=== PATIENT | female | born 1965 | race African-American/Black ===

== ENCOUNTER 2017-08-13 10:54 | Observation (INO) | payer OTHER ==
[~2017-08-13] VITALS: Ht 165.1 cm; Wt 117.9 kg
[2017-08-13] MEDS ORDERED: SODIUM CHLORIDE 0.9% 500 ML IVB ONE (11:15)
[2017-08-13 11:36] LABS: Basophils # (auto) 0 uL; Basophils % (auto) 0.9 % (0.0-2.0); Eosinophils # (auto) 0.2 uL; Eosinophils % (auto) 3.8 % (0.0-7.0); Hematocrit 39.2 % (36.0-46.0); Hemoglobin 13.6 g/dL (12.2-16.2); Lymphocytes # (auto) 1.9 uL; Lymphocytes % (auto) 40.3 % (10.0-50.0); Mean Corpuscular Hemoglobin 30.6 pg (28.0-32.0); Mean Corpuscular Hgb Conc. 34.6 g/dL (32.0-36.0); Mean Corpuscular Volume 88.3 fL (80.0-100.0); Mean Platelet Volume 8.9 fL (6.9-10.8); Monocytes # (auto) 0.5 uL; Monocytes % (auto) 10.5 % (0.0-12.0); Neutrophils # (auto) 2.1 uL; Neutrophils % (auto) 44.5 % (37.0-80.0); Nucleated Red Blood Cells % 0.1 %; Platelet Count (auto) 222 10^3/uL (140-450); Red Cell Distribution Width 14.7 % (11.8-14.3); White Blood Cell 4.7 10^3/uL (4.4-10.8)
[2017-08-13 11:58] LABS: INR 0.97 (0.9-1.15); Partial Thromboplastin Time 25.9 sec (22.64-33.71); Prothrombin Time 10.6 sec (9.37-12.3)
[2017-08-13 12:01] LABS: Albumin 3.5 g/dL (3.4-5.0); Alkaline Phosphatase 85 U/L (45-117); Anion Gap 3 (5-15); Aspartate Aminotransferase 34 U/L (15-37); Bilirubin, Total 0.5 mg/dL (0.2-1.0); Blood Urea Nitrogen 15 mg/dL (7-18); Calcium 8.5 mg/dL (8.5-10.1); Carbon Dioxide 32 mmol/L (21-32); Chloride 101 mmol/L (98-107); GFR African American 52 mL/min; GFR Non-African American 43 mL/min; Glucose 93 mg/dL (74-106); Magnesium 2.7 mg/dL (1.6-2.6); Sodium 136 mmol/L (136-145); Total Protein 8.4 g/dL (6.4-8.2)
[2017-08-13 12:05] LABS: Potassium 4.8 mmol/L (3.5-5.1)
[2017-08-13 13:08] LABS: B-Type Natriuretic Peptide 0.06 pg/mL (0-100)
[2017-08-13 13:17] LABS: Temperature: 21.5 C (20.0-25.0)
[2017-08-13 14:50] LABS: Urine Bilirubin Negative (Negative); Urine Blood Negative /uL (Negative); Urine Color Yellow (Yellow); Urine Glucose Normal (Normal); Urine Ketone Negative (Negative); Urine Mucus FEW (None Seen); Urine Nitrite POSITIVE (Negative); Urine RBC 2 /hpf (0 - 4); Urine Squamous Epithelial Cell FEW /hpf (<5); Urine Urobilinogen Normal (Negative); Urine pH 6.5 (5.0-8.0)
[2017-08-13] MEDS ORDERED: cefTRIAXone 1GM/50ML D5W 50 ML IV ONE (15:45)
[2017-08-13 16:45] VITALS: BP 127/78
== END 2017-08-13 16:46 | disposition home or self-care (01) | DRG 203 ==
LOC: ER 10:54 → OVERFLOW 11:16 → ER 16:46
PROVIDERS: ADMIT Family Medicine; ATTEND Family Medicine
DX: R07.89 Other chest pain (principal); I10 Essential (primary) hypertension; N39.0 Urinary tract infection, site not specified; H81.10 Benign paroxysmal vertigo, unspecified ear
CPT/HCPCS: 36415; 70450; 71010; 80053; 81001; 83735; 83880; 84484; 85025; 85379; 85610; 85730; 93005; 96361; 96365; 99285; G0378; J0696; J7040

== ENCOUNTER 2022-02-16 05:45 | Emergency (ER) | payer MEDICAID, OTHER ==
[~2022-02-16] VITALS: Ht 162.6 cm; Wt 120.2 kg
[2022-02-16 06:18] LABS: Basophils # (auto) 0 10 ^3/uL (0-0.2); Basophils % (auto) 0.9 % (0.0-2.0); Eosinophils # (auto) 0.2 10 ^3/uL (0-0.8); Hematocrit 40.3 % (36.0-46.0); Hemoglobin 14.2 g/dL (12.2-16.2); Lymphocytes # (auto) 2.1 10 ^3/uL (0.4-5.4); Lymphocytes % (auto) 46.7 % (10.0-50.0); Mean Corpuscular Hemoglobin 31.4 pg (28.0-32.0); Mean Corpuscular Hgb Conc. 35.2 g/dL (32.0-36.0); Mean Corpuscular Volume 89.1 fL (80.0-100.0); Monocytes # (auto) 0.3 10 ^3/uL (0-1.3); Monocytes % (auto) 7.7 % (0.0-12.0); Neutrophils # (auto) 1.8 10 ^3/uL (1.6-8.6); Neutrophils % (auto) 39.7 % (37.0-80.0); Nucleated Red Blood Cells % 0.1 %; Red Blood Cells 4.52 10^6/uL (4.0-5.20); Red Cell Distribution Width 13.3 % (11.8-14.3); White Blood Cell 4.5 10^3/uL (4.4-10.8)
[2022-02-16 06:32] LABS: Albumin 3.7 g/dL (3.4-5.0); BUN/Creatinine Ratio 13.8; Calcium 9.4 mg/dL (8.5-10.1); Potassium 3.5 mmol/L (3.5-5.1)
[2022-02-16 06:35] LABS: Bilirubin, Total 0.4 mg/dL (0.2-1.0); Total Protein 7.5 g/dL (6.4-8.2)
[2022-02-16 08:41] LABS: Urine Bacteria MANY /hpf (None Seen); Urine Blood Negative /uL (Negative); Urine Specific Gravity 1.015 (1.001-1.035); Urine WBC 42 /hpf (0 - 5)
[2022-02-16] MEDS ORDERED: cefTRIAXone 1GM/50ML D5W 50 ML IV ONE (10:45)
[2022-02-16 12:11] VITALS: BP 119/77
== END 2022-02-16 13:28 | disposition home or self-care (01) ==
LOC: ER 05:45
DX: K80.20 Calculus of gallbladder without cholecystitis without obstruction (principal); N39.0 Urinary tract infection, site not specified; K80.50 Calculus of bile duct without cholangitis or cholecystitis without obstruction; E66.01 Morbid (severe) obesity due to excess calories; I10 Essential (primary) hypertension; Z68.41 Body mass index [BMI] 40.0-44.9, adult; Z88.6 Allergy status to analgesic agent
CPT/HCPCS: 36415; 76705; 80053; 81001; 83690; 84484; 85025; 93005; 96365; 99285; J0696

== ENCOUNTER 2023-04-12 10:56 | Emergency (ER) | payer SELFPAY ==
[~2023-04-12] VITALS: Ht 165.1 cm; Wt 122.0 kg
[2023-04-12 11:26] LABS: Basophils # (auto) 0 10 ^3/uL (0-0.2); Basophils % (auto) 1.1 % (0.0-2.0); Eosinophils # (auto) 0.2 10 ^3/uL (0-0.8); Hematocrit 37.7 % (36.0-46.0); Lymphocytes # (auto) 1.9 10 ^3/uL (0.4-5.4); Lymphocytes % (auto) 46.2 % (10.0-50.0); Mean Corpuscular Hemoglobin 30.6 pg (28.0-32.0); Mean Corpuscular Hgb Conc. 34.4 g/dL (32.0-36.0); Mean Corpuscular Volume 88.8 fL (80.0-100.0); Monocytes # (auto) 0.4 10 ^3/uL (0-1.3); Monocytes % (auto) 9.5 % (0.0-12.0); Neutrophils # (auto) 1.6 10 ^3/uL (1.6-8.6); Neutrophils % (auto) 38.2 % (37.0-80.0); Nucleated Red Blood Cells % 0.2 %; Red Blood Cells 4.25 10^6/uL (4.0-5.20); Red Cell Distribution Width 14.2 % (11.8-14.3); White Blood Cell 4.2 10^3/uL (4.4-10.8)
[2023-04-12] MEDS ORDERED: MORPHINE SULFATE 4 MG/ML SYR/VIAL IV ONE (11:30)
[2023-04-12 11:42] LABS: Urine Bacteria FEW /hpf (None Seen); Urine Blood Negative /uL (Negative); Urine Specific Gravity 1.011 (1.001-1.035); Urine WBC 33 /hpf (0 - 5)
[2023-04-12 11:45] LABS: Albumin 3.3 g/dL (3.4-5.0); BUN/Creatinine Ratio 13.7 (10.0-20.0); Calcium 9.1 mg/dL (8.5-10.1); Potassium 3.5 mmol/L (3.5-5.1)
[2023-04-12 11:47] LABS: Bilirubin, Total 0.4 mg/dL (0.2-1.0); Total Protein 7.1 g/dL (6.4-8.2)
[2023-04-12 11:55] LABS: INR 0.94 (0.9-1.15); Partial Thromboplastin Time 27.1 sec (24.6-33.4)
[2023-04-12] MEDS ORDERED: MORPHINE SULFATE 4 MG/ML SYR/VIAL IM ONE (12:30)
[2023-04-12] MEDS ORDERED: KETOROLAC TROMETH 30 MG/ML 1ML VIAL IM ONE (13:30)
[2023-04-12] MEDS: ASPirin 81 mg TAB PO ONE ×2 (13:31→13:33)
[2023-04-12] MEDS ORDERED: IOHEXOL 350 MG/ML 100ML IJ ONE (16:13)
[2023-04-12 18:18] VITALS: BP 154/93
== END 2023-04-12 18:46 | disposition home or self-care (01) ==
LOC: ER 10:56
DX: R07.89 Other chest pain (principal); R10.30 Lower abdominal pain, unspecified; I10 Essential (primary) hypertension; Z88.6 Allergy status to analgesic agent
CPT/HCPCS: 36415; 71045; 80053; 81001; 83735; 83880; 84484; 85025; 85379; 85610; 85730; 93005; 96372; 99285; J1885